=== PATIENT | female | born 2000 | race Caucasian/White ===

== ENCOUNTER 2022-12-07 10:04 | Emergency (ER) | payer BC, SELFPAY ==
[2022-12-07 10:18] VITALS: BP 131/85; PULSE 101; RESP 16; TEMP 36.7; O2SAT 98; BMI 30.9
--- NOTE | 2022-12-07 11:01 | ED.GENADULT ---
HPI - General Adult General Chief complaint: Neck Injury/Pain Stated complaint: neck pain Time Seen by Provider: 12/07/22 10:46 History of Present Illness HPI narrative: This 22-year-old female comes in reporting couple small reactive lumps in the left posterior neck that occurred a couple days ago. Now she has developed an area of tenderness on the top of her head that has some warmth, swelling, and erythema typical of a cellulitis. She does not report any injury event. She has not had any fevers. She is otherwise in good health. Related Data Home Medications Medication Instructions Recorded Confirmed acetaminophen 500 mg tablet 500 mg PO Q4-6H PRN 12/07/22 12/07/22 (Tylenol Extra Strength) ibuprofen 200 mg tablet (Advil) 200 mg PO Q6-8H PRN 12/07/22 12/07/22 norgestrel 0.3 mg-ethinyl 1 tab PO DAILY 12/07/22 12/07/22 estradiol 30 mcg tablet (Jacob (28)) sertraline 50 mg tablet 50 mg PO DAILY 12/07/22 12/07/22 Previous Rx's Medication Instructions Recorded cephalexin 500 mg capsule 500 mg PO TID 7 days #21 caps 12/07/22 ondansetron HCl 4 mg tablet 4 mg PO Q6H #10 tabs 12/07/22 Allergies Allergy/AdvReac Type Severity Reaction Status Date / Time No Known Drug Allergies Allergy Verified 12/07/22 10:16 Review of Systems Status of ROS: Reports: 10 or more systems reviewed and unremarkable except as noted in History and below Narrative: Constitutional: No fevers, no weight gain or loss. Eyes: No discharge. No vision changes. HENT: No congestion, no sore throat, no ear pain. Cardiovascular: No chest pain, no palpitations. Respiratory: No shortness of breath, no wheezes, no cough. Gastrointestinal: No abdominal pain, no diarrhea. She reports nausea and vomiting. Genitourinary: No dysuria, no hematuria. Musculoskeletal: Normal range of motion. Skin: No rashes, no pruritis. Area of redness and warmth on the top of her head. Neurological: No dizziness, weakness, sensory change, speech change. Endo/Heme/Allergies: No bruising or bleeding. No polydipsia. Pysch: no suicidality, no anxiety, no insomnia. All other systems reviewed and are negative. PFS PFS Social History Smoking Status: Never smoker Do you use any of these nicotine containing products: None Second hand tobacco smoke exposure: No How often do you have a drink containing alcohol: monthly or less How many standard drinks containing alcohol do you have on a typical day: 1 or 2 AUDIT-C Alcohol total score: 1 Non-prescribed substance use: denies use service: No Exam Narrative: Exam Narrative: Constitutional: Well-developed, well-nourished, no acute distress. HEENT: Area of erythema with mild swelling and warmth on the top of her head measuring approximately 5 cm in diameter typical of a cellulitis. Neck: Normal range of motion. Nontender. Supple. Heart: Regular. No murmurs. Normal rate. Intact distal pulses. Lungs: Clear to auscultation. No chest discomfort. No wheezes, rhonchi, or rales. Abdomen: Normal bowel sounds. Nontender. No rebound tenderness. Genitalia: Deferred. Back: No midline tenderness. Normal range of motion. Extremities: Normal range of motion. No injury. Skin: Intact. No rash. Warm. No erythema or pallor. Neurologic: No altered sensation. No weakness. Alert and oriented. Psychiatric: No suicidality. No anxiety or depression. No insomnia. Nursing notes and vitals signs are reviewed. Const: Vital Signs, click to edit/add: Vital Signs - 24 hr 12/07/22 10:18 Temperature 98.0 F Pulse Rate [Pulse Oximeter] 101 H Respiratory Rate 16 Blood Pressure [Ri ght Upper Arm] 131/85 Pulse Oximetry 98 Oxygen Delivery Me thod Room Air Course Vital Signs Vital signs: Initial Vital Signs Temperature 98.0 F 12/07/22 10:18 Temperature Source Temporal Artery Scan 12/07/22 10:18 Pulse Rate 101 H 12/07/22 10:18 Pulse Rhythm 12/07/22 10:18 Pulse Strength 3+ Normal 12/07/22 10:18 Respiratory Rate 16 12/07/22 10:18 Blood Pressure 131/85 12/07/22 10:18 Blood Pressure Mean 100 12/07/22 10:18 Blood Pressure Position Sitting 12/07/22 10:18 Pulse Oximetry 98 12/07/22 10:18 Oxygen Delivery Method 12/07/22 10:18 Vital Signs Temperature 98.0 F 12/07/22 10:18 Pulse Rate 101 H 12/07/22 10:18 Respiratory Rate 16 12/07/22 10:18 Blood Pressure 131/85 12/07/22 10:18 Pulse Oximetry 98 12/07/22 10:18 Oxygen Delivery Method 12/07/22 10:18 Temperature 98.0 F 12/07/22 10:18 Pulse Rate 101 H 12/07/22 10:18 Respiratory Rate 16 12/07/22 10:18 Blood Pressure 131/85 12/07/22 10:18 Pulse Oximetry 98 12/07/22 10:18 Oxygen Delivery Method 12/07/22 10:18 Medical Decision Making MDM Narrative Medical decision making narrative: This patient comes in with symptoms typical of a cellulitis. She has some associated nausea and vomiting. She does not have any fever and is not tripping SIRS criteria for sepsis. I did discuss lab and imaging options and stated that they were optional at this time. In a process of shared decision making these were declined. The patient did receive an oral dose of Zofran 4 mg. She received a prescription for the same along with Keflex. I describe signs and symptoms that would indicate a need for return and re-evaluation. Discharge Plan Discharge Clinical Impression: Cellulitis Patient Disposition: Home, Self-Care Condition: Stable Additional Instructions: Take medication as prescribed. Follow up with MD or return if worsening symptoms happen. Prescriptions: New ondansetron HCl 4 mg tablet 4 mg PO Q6H Qty: 10 0RF cephalexin 500 mg capsule 500 mg PO TID 7 Days Qty: 21 0RF No Action ibuprofen [Advil] 200 mg tablet 200 mg PO Q6-8H PRN acetaminophen [Tylenol Extra Strength] 500 mg tablet 500 mg PO Q4-6H PRN Cryselle (28) 0.3-30 mg-mcg tablet 1 tab PO DAILY Label Comments: TAKE ONE TABLET BY MOUTH EVERY DAY sertraline 50 mg tablet 50 mg PO DAILY Label Comments: 1 TABLET BY MOUTH DAILY (50 MG) PATIENT WILL CALL WHEN REFILL NEEDED Follow Up/Referrals: Osvaldo Dominguez MD [Primary Care Provider] - [facility]one [facility] Inst[facility]
[2022-12-07] MEDS: ONDANSETRON ODT 4 MG TAB PO (12:02)
== END 2022-12-07 12:06 | disposition home or self-care (01) ==
LOC: ED 11:13
PROVIDERS: Emergency Provider Emergency Medicine Emergency Medical Services; PCP Family Medicine
DX: L03.90 Cellulitis, unspecified (principal)
CPT/HCPCS: 96374; 99283; 99284; A9270

== ENCOUNTER 2022-12-19 16:31 | Outpatient (CLI) | payer BC, SELFPAY | END 2022-12-19 16:32 | disposition home or self-care (01) | PROVIDERS: PCP Family Medicine; Visit Provider Internal Medicine | DX: R19.7 Diarrhea, unspecified (principal); L03.90 Cellulitis, unspecified | CPT/HCPCS: 80053; 87493 ==

== ENCOUNTER 2024-11-07 10:30 | Outpatient (RCR) | payer BC, SELFPAY | END 2024-12-11 13:26 | disposition home or self-care (01) | PROVIDERS: PCP Family Medicine; Visit Provider Family Medicine | DX: S93.491A Sprain of other ligament of right ankle, initial encounter (principal); M25.371 Other instability, right ankle; Z51.89 Encounter for other specified aftercare | CPT/HCPCS: 97110; 97162 ==